=== PATIENT | female | born 2000 | race African-American/Black ===

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

== ENCOUNTER 2023-05-07 23:43 | Emergency (ER) | payer OTHER ==
[~2023-05-07] VITALS: Ht 160 cm; Wt 59.0 kg
[~2023-05-07 23:43] MED LIST: NITR-87 MT
[2023-05-08 00:32] VITALS: O2SAT 99
[2023-05-08] MEDS ORDERED: IBUPROFEN 600MG TABLET PO ONE (01:30)
[2023-05-08 01:42] VITALS: BP 121/71
[2023-05-08 02:08] VITALS: PULSE 80; RESP 17; TEMP 98.3
== END 2023-05-08 02:08 | disposition home or self-care (01) ==
LOC: ER 23:43
DX: S62.625A Displaced fracture of middle phalanx of left ring finger, initial encounter for closed fracture (principal); X58.XXXA Exposure to other specified factors, initial encounter; Y93.89 Activity, other specified; Y92.89 Other specified places as the place of occurrence of the external cause; Y99.8 Other external cause status
CPT/HCPCS: 29130; 73130; 99283